=== PATIENT | male | born 1935 | race Caucasian/White ===

== ENCOUNTER 2018-02-14 08:46 | Inpatient (IN) | payer MEDICARE ==
[2018-02-14 09:44] LABS: #Eosinphils 0.2 thou/uL (0.0-0.7); #Lymphocytes 1.2 thou/uL (1.20-3.40); #Monocytes 0.5 thou/uL (0.11-0.59); #Neutrophils 3.9 thou/uL (1.40-6.50); %Basophils 0.4 % (0.0-1.0); %Eosinophils 2.9 % (0.0-10.0); %Lymphocytes 20.8 % (21.0-51.0); %Monocytes 8.9 % (0.0-10.0); %Neutrophils 66.9 % (42.0-75.0); Hemoglobin 14.5 g/dL (14.0-18.0); Mean Corpuscular HGB CONC 33.6 g/dL (32.0-36.0); Mean Corpuscular Hemoglobin 31.1 pg (27.0-31.0); Mean Corpuscular Volume 92.6 fL (78.0-98.0); Mean Platelet Volume 7.3 fL (7.4-10.4); Platelet Count 122 thou/uL (130-400); RBC Distribution Width 11.4 % (11.5-14.5); Red Blood Cell (RBC) Count 4.66 mill/uL (4.70-6.10); White Blood Cell (WBC) Count 5.8 thou/uL (4.8-10.8)
[2018-02-14 09:58] LABS: ALT (SGPT) 18 U/L (8-55); AST (SGOT) 14 U/L (5-34); Albumin 3.9 g/dL (3.4-4.8); Alkaline Phosphatase 60 U/L (40-150); Anion Gap 10 mmol/L (10-20); BUN (Urea Nitrogen) 14 mg/dL (8.4-25.7); Bilirubin, Total 1.2 mg/dL (0.2-1.2); CK (CPK) 65 U/L (30-200); Calc. Creatinine Clearance 0 mL/min (70-130); Calcium 9.7 mg/dL (7.8-10.44); Carbon Dioxide 26 mmol/L (23-31); Chloride 108 mmol/L (98-107); Estimated GFR-MDRD 58; Globulin 2.6 g/dL (2.4-3.5); Glucose 120 mg/dL (83-110); Potassium 4.4 mmol/L (3.5-5.1); Protein, Total 6.5 g/dL (5.8-8.1); Sodium 140 mmol/L (136-145)
[2018-02-14 10:02] LABS: CKMB 1.6 ng/mL (0-6.6); Troponin I Less than 0.010 ng/mL (< 0.028)
[2018-02-14] MEDS ORDERED: cefTRIAXone\\ROCEPHIN 2 GM VIAL ONE (10:47)
--- NOTE | 2018-02-14 10:49 | ULT ---
ULTRASOUND WITH DOPPLER DUPLEX VENOUS LOWER EXTREMITY RIGHT CPT: 66858 ICD-10-PCS: B54D HISTORY: Pain and edema of right lower extremity. TECHNIQUE: Color flow Doppler, spectral waveform analysis of pulsed Doppler, and rene-scale imaging with cleo ritchie and augmentation, were used to evaluate the bilateral common femoral, femoral, popliteal, client services coordinator ior tibial, and superficial femoral, veins; and the proximal portions of the profunda femoral and gre ater saphenous, veins. FINDINGS: Appropriate compressibility and flow within the imaged deep vein system of the right lower extremity. IMPRESSION: No deep vein thrombosis. POS: JOSIANE
--- NOTE | 2018-02-14 10:50 | RAD ---
THREE VIEWS RIGHT FOOT: HISTORY: Pain. COMPARISON: None. FINDINGS: Lisfranc alignment is maintained. Joint spaces are preserved. Mild hallux valgus deformity. No fra cture. No cortical irregularity or periosteal reaction. IMPRESSION: No fracture. POS: JOSIANE
--- NOTE | 2018-02-14 10:51 | RAD ---
CHEST 1 VIEW: HISTORY: Abnormal EKG. COMPARISON: None. FINDINGS: There is a linear opacity in the left mid lung which may represent scar or atelectasis. Additional l inear opacities are presumed to be chronic. No consolidation or mass. No pleural effusion or pneumo thorax. Normal cardiac silhouette. IMPRESSION: Presumed chronic changes. POS: JOSIANE
[2018-02-14 11:49] LABS: Magnesium 2.3 mg/dL (1.6-2.6); Phosphorus 2.8 mg/dL (2.3-4.7)
[2018-02-14] MEDS ORDERED: hydrALAZINE 20 MG/ML VIAL SLOW IVP PRN (13:15)
[2018-02-14] MEDS ORDERED: Bisacodyl 10 MG SUPP PR PRN (13:29)
[2018-02-14] MEDS ORDERED: Acetaminophen 325 MG TAB PO PRN (13:29)
[2018-02-14] MEDS ORDERED: Ondansetron HCl/PF 4 MG/2 ML Vial IVP PRN (13:29)
[2018-02-14] MEDS ORDERED: Senokot 8.6 MG TAB PO PRN (13:29)
[2018-02-14] MEDS ORDERED: Nitroglycerin 0.4 MG TAB (25 Tab Bottle) PO PRN (13:29)
[2018-02-14] MEDS ORDERED: Ondansetron ODT 4 MG TAB PO PRN (13:29)
[2018-02-14] MEDS ORDERED: Losartan 25 MG TAB PO SCH (13:30)
--- NOTE | 2018-02-14 13:55 | HP ---
DATE OF ADMISSION: 02/14/2018 PRIMARY CARE PHYSICIAN: Hans Ryees D.O. CHIEF COMPLAINT: Right foot pain. HISTORY OF PRESENT ILLNESS: Patient is an 83-year-old white male with hypertension, who presented to the emergency room with right ankle swelling. He was sent from [facility]. Approxim quentin 9 days ago, patient had a trauma to the right ankle. Over the last 3 days, he noticed his right foot was more swollen than usual. He also had difficulty walking. The pain was worse today, for whi ch he went to the [facility]. At the [facility], an x-ray of the foot was done that was negative . He was sent to the emergency room to rule out DVT. In the emergency room, he was found to have high-degree AV block. His pulse rate is in the 30s to 40 s. He does not take beta blockers or calcium channel promise. PAST MEDICAL HISTORY: 1. Hypertension 2. Hyperlipidemia. 3. Benign prostatic hypertrophy, followed by Dr. Galloway. 4. Restless legs syndrome. 5. History of basal cell carcinoma, followed by Dr. Pickard. PAST SURGICAL HISTORY: 1. Umbilical hernia surgery in 1994. 2. Basal cell cancer removal. ALLERGIES: No known drug allergies. CURRENT HOME MEDICATIONS: Aspirin 81 mg daily, gabapentin 100 mg at bedtime, losartan 50 mg daily, s imvastatin 20 mg daily. SOCIAL HISTORY: Patient currently lives at home with his . Today is his 55th wedding anniversar y. He is FULL CODE, makes his own decisions with the help of his family. FAMILY HISTORY: Brother with lung cancer. He also had prostate cancer. REVIEW OF SYSTEMS: The following complete review of systems was negative, unless otherwise mentioned in the HPI or below: Constitutional: Weight loss or gain, ability to conduct usual activities. Sk in: Rash, itching. Eyes: Double vision, pain. ENT/Mouth: Nose bleeding, neck stiffness, pain, te nderness. Cardiovascular: Palpitations, dyspnea on exertion, orthopnea. Respiratory: Shortness of breath, wheezing, cough, hemoptysis, fever, or night sweats. Gastrointestinal: Poor appetite, abdo nelson pain, heartburn, nausea, vomiting, constipation, or diarrhea. Genitourinary: Urgency, frequen cy, dysuria, nocturia. Musculoskeletal: Pain, swelling. Neurologic/Psychiatric: Anxiety, depressi on. Allergy/Immunologic: Skin rash, bleeding tendency. PHYSICAL EXAMINATION: VITAL SIGNS: In the emergency room showed temperature 97.4, respirations 16, pulse rate of 42, blood pressure of 200/86 with O2 saturation 96% on room air. GENERAL: An 83-year-old male in no apparent distress. HEENT: Head, atraumatic, normocephalic. Sclerae are anicteric. Moist mucous membrane, no oral lesi on. NECK: Supple, no JVD appreciated. No carotid bruit. LUNGS: Clear to auscultation bilaterally. No wheezing, rales, or rhonchi. HEART: S1, S2 present, bradycardic. No significant rubs, gallops, or murmurs appreciated. ABDOMEN: Soft, nontender, bowel sounds present. EXTREMITIES: No edema or calf tenderness in the left lower extremity. There is some erythema along with swelling over the right ankle. There is also some warmth. PERIPHERAL VASCULAR: Radial pulses and dorsalis pedis pulses were palpable. SKIN: As discussed above. LYMPH NODES: No palpable lymph nodes in the neck or groin. NEUROLOGIC: Grossly nonfocal. Moves all 4 extremities. Power was 5/5 in all extremities. PSYCHIATRIC: Alert, awake, oriented x3. LABORATORY AND X-RAY FINDINGS: TSH was normal last year. Electrolytes were all normal. Sodium was 140, potassium 4.4, BUN 14, creatinine 1.19. LFTs in normal range. CBC showed WBC 5.8 with hemoglob in 14.5 with platelets of 122. EKG, by my review, showed probable third-degree AV block. Chest x-ra y, by my review, was negative for infiltrate. IMPRESSION AND PLAN: 1. Suspected third-degree atrioventricular block. The patient will be monitored in the Intensive Ca re Unit setting. Cardiology will be consulted. Echocardiogram will be done. His thyroid studies we re normal last year. All the electrolytes were in normal range. 2. Uncontrolled hypertension. We will resume losartan. We will also add hydralazine as needed. We will continue vital signs per protocol. 3. Right ankle swelling with erythema and pain. Patient had a trauma 9 days ago. His x-rays and Do ppler were negative. He probably has right foot cellulitis. We will start empiric antibiotics. Leg elevation was emphasized. 4. Benign prostatic hypertrophy. Patient denies any obstructive symptoms. He is not on any medicat ions. 5. Chronic kidney disease, stage 3. We will avoid nephrotoxic agents. 6. Thrombocytopenia, mild. We will monitor. 7. Hyperlipidemia. We will continue simvastatin. 8. Restless legs syndrome. We will continue gabapentin at bedtime. Plan of care was discussed with the patient and the family in detail. They stated understanding.
[2018-02-14 14:39] LABS: Troponin I 0.015 ng/mL (< 0.028)
[2018-02-14 17:02] VITALS: BMI 28.5
[2018-02-14] MEDS: Enalaprilat Dihydrate 1.25 MG/ML VIAL SLOW IVP SCH ×2 (17:32→23:00)
[2018-02-14] MEDS ORDERED: niCARdipine HCl 25 MG in Sodium Chloride 0.9% 250 ML 240 ML IVPB SCH (18:30)
--- NOTE | 2018-02-14 18:33 | CON ---
DATE OF CONSULT: 02/14/18 HISTORY OF PRESENT ILLNESS: The patient is an 83-year-old gentleman who presented after hitting his foot and was noted to have a slow heart rate. The patient has no previous cardiac history. The hiram ent said he bumped his foot and went to the emergency room for evaluation. The patient was noted to have a very slow heart rate. The patient denies having any lightheadedness or history of syncope. T he patient denies having significant fatigue. The patient also states that he has had no chest disco mfort or palpitations. PAST MEDICAL HISTORY: Significant for, 1. Hypertension. 2. Dyslipidemia 3. BPH. 4. He has had skin cancer removal. 5. Umbilical hernia surgery. MEDICATIONS ON ADMISSION: Aspirin 81 daily, gabapentin 100 at bedtime, losartan 50 daily, simvastati n 20 daily. ALLERGIES: No known drug allergies. SOCIAL HISTORY: Nonsmoker. FAMILY HISTORY: No strong family history of heart disease. REVIEW OF SYSTEMS: Ten-point system otherwise unremarkable. PHYSICAL EXAMINATION: GENERAL: This is a well-developed gentleman in no acute distress, alert and oriented x3. VITAL SIGNS: Blood pressure was 195/78. NECK: No jugular venous distention. LUNGS: Clear to auscultation. HEART: Regular rate and rhythm, normal S1, S2. ABDOMEN: Nondistended. EXTREMITIES: No edema. SKIN: Warm and dry. NEUROLOGIC: Nonfocal. VASCULAR: Radial pulses 2+. LABORATORY DATA: Sodium 140, potassium 4.4, chloride 108, bicarbonate 26, BUN 40, creatinine is 1.19 , glucose 120, troponin less than 0.01. White blood cell 5.8, hemoglobin 14.5, hematocrit 43.1. His platelets are 122. His EKG revealed intermittent third degree AV block with an otherwise normal ECG . IMPRESSION: 1. Third degree AV block 2. Hypertension, poorly controlled. This gentleman presents with asymptomatic third degree AV block. He is ------ from a cardiac standpo int, his blood pressure is markedly elevated. We will start the patient on Vasotec. We will follow this patient with you through his hospitalization. Critical care note - critical care time 40 minutes.
[2018-02-14] MEDS: Docusate 100 MG CAP PO SCH (20:00)
[2018-02-14] MEDS: Simvastatin 20 MG TAB PO SCH (20:00)
[2018-02-14] MEDS: Famotidine 20 MG TAB PO SCH (20:00)
[2018-02-14] MEDS: Gabapentin 100 MG CAP PO SCH (20:00)
[2018-02-14] MEDS: cefTRIAXone\\ROCEPHIN 1 GM in Sodium Chloride 0.9% 100 ML IVPB SCH (22:21)
[2018-02-15 04:20] LABS: #Eosinphils 0.1 thou/uL (0.0-0.7); #Lymphocytes 1.4 thou/uL (1.20-3.40); #Monocytes 0.8 thou/uL (0.11-0.59); #Neutrophils 5.5 thou/uL (1.40-6.50); %Basophils 0.2 % (0.0-1.0); %Eosinophils 1.8 % (0.0-10.0); %Monocytes 9.6 % (0.0-10.0); %Neutrophils 70.5 % (42.0-75.0); Hemoglobin 15.2 g/dL (14.0-18.0); Mean Corpuscular HGB CONC 33.9 g/dL (32.0-36.0); Mean Corpuscular Hemoglobin 30.9 pg (27.0-31.0); Mean Corpuscular Volume 91.1 fL (78.0-98.0); Mean Platelet Volume 7.4 fL (7.4-10.4); Platelet Count 140 thou/uL (130-400); RBC Distribution Width 11.5 % (11.5-14.5); Red Blood Cell (RBC) Count 4.92 mill/uL (4.70-6.10); White Blood Cell (WBC) Count 7.8 thou/uL (4.8-10.8)
[2018-02-15 04:31] LABS: Anion Gap 11 mmol/L (10-20); BUN (Urea Nitrogen) 16 mg/dL (8.4-25.7); Calc. Creatinine Clearance 60 mL/min (70-130); Calcium 9.7 mg/dL (7.8-10.44); Carbon Dioxide 25 mmol/L (23-31); Chloride 108 mmol/L (98-107); Estimated GFR-MDRD 67; Glucose 112 mg/dL (83-110); Sodium 140 mmol/L (136-145)
[2018-02-15] MEDS: Enalaprilat Dihydrate 1.25 MG/ML VIAL SLOW IVP SCH ×3 (06:09→17:56)
[2018-02-15] MEDS: Famotidine 20 MG TAB PO SCH ×2 (09:28→21:13)
[2018-02-15] MEDS: Docusate 100 MG CAP PO SCH ×2 (09:29→21:14)
[2018-02-15] MEDS: Doxycycline 100 MG CAP PO SCH ×2 (09:30→21:13)
[2018-02-15] MEDS: Enoxaparin Sodium 40 MG/0.4 ML SYRINGE SC SCH (09:30)
[2018-02-15] MEDS: Losartan 25 MG TAB PO SCH (09:33)
[2018-02-15] MEDS ORDERED: traMADol HCl 50 MG TAB PO PRN (10:21)
[2018-02-15] MEDS ORDERED: Losartan 25 MG TAB PO SCH (12:00)
[2018-02-15] MEDS: Acetaminophen 325 MG TAB PO SCH ×2 (17:17→21:13)
[2018-02-15] MEDS: Simvastatin 20 MG TAB PO SCH (21:14)
[2018-02-15] MEDS: Gabapentin 100 MG CAP PO SCH (21:14)
[2018-02-15] MEDS ORDERED: Atropine Sulfate 1 mg/10 ml Syringe ONE (22:09)
--- NOTE | 2018-02-15 22:22 | PDOC.PN ---
- Subjective Encounter Start Date: 02/15/18 Encounter Start Time: 14:00 Patient seen and examined for AV block/Cellulitis. No CP/syncope/palpitations. No other complaints. No overnight events - Objective Resuscitation Status: Resuscitation Status FULL:Full Resuscitation MAR Reviewed: Yes Vital Signs & Weight: Vital Signs (12 hours) Temp Pulse Resp BP Pulse Ox 02/15/18 20:00 97.8 F 45 L 16 94 L 02/15/18 17:56 146/72 H 02/15/18 15:00 98.5 F 02/15/18 11:41 174/77 H 02/15/18 11:00 97.7 F Weight Admit Weight 182 lb 1.629 oz Weight 182 lb 12.211 oz Most Recent Monitor Data Heart Rate from ECG 43 NIBP 158/60 NIBP BP-Mean 90 Respiration from ECG 19 SpO2 95 I&O: 02/14/18 02/15/18 02/16/18 06:59 06:59 06:59 Intake Total 460 1850 Output Total 875 450 Balance -415 1400 Result Diagrams: 02/15/18 03:25 02/15/18 03:25 EKG Reviewed by me: Yes (Tele - 3rd deg AV block) Phys Exam - Physical Examination Constitutional: NAD Neck: no JVD Respiratory: no wheezing, no rales, no rhonchi, clear to auscultation bilateral Cardiovascular: no significant murmur, no rub S1S2 +, bradycardic, no heaves Gastrointestinal: soft, non-tender, positive bowel sounds Musculoskeletal: no edema Erythema over the Rt foot - slightly better Neurological: non-focal, normal sensation, moves all 4 limbs Psychiatric: normal affect, A&O x 3 Dx/Plan - Plan plan discussed w/ family, DVT proph w/SCDs IMPRESSION: 1. Third-degree atrioventricular block. 2. Hypertension. on Losartan 3. Right foot cellulitis 4. Benign prostatic hypertrophy. 5. Chronic kidney disease, stage 3. 6. Thrombocytopenia. improving 7. Hyperlipidemia. on Simvastatin 8. Restless legs syndrome. PLAN: * Cont CCU monitoring * Pacemaker in AM * Cont Atbx * Cont to monitor * Cont current meds as below. Review of Systems - Review of Systems Respiratory: negative: Cough, Dry, Shortness of Breath, Hemoptysis, SOB with Excertion, Pleuritic Pain, Sputum, Wheezing Cardiovascular: negative: chest pain, palpitations, orthopnea, paroxysmal nocturnal dyspnea, edema, light headedness, other - Medications/Allergies Allergies/Adverse Reactions: Allergies Allergy/AdvReac Type Severity Reaction Status Date / Time No Known Food Allergies Allergy Verified 02/14/18 12:34 Medications: Current Medications Acetaminophen (Tylenol) 650 mg PO Q4H PRN PRN Reason: Headache/Fever or Pain Last Admin: 02/15/18 10:25 Dose: 650 mg Acetaminophen (Tylenol) 650 mg PO TID [facility] Last Admin: 02/15/18 21:13 Dose: 650 mg Aspirin (Aspirin Chewable) 81 mg PO DAILY [facility] Last Admin: 02/15/18 09:28 Dose: 81 mg Bisacodyl (Dulcolax) 10 mg LA Q24H PRN PRN Reason: Constipation Docusate Sodium (Colace) 100 mg PO BID [facility] Last Admin: 02/15/18 21:14 Dose: 100 mg Doxycycline Hyclate (Vibramycin) 100 mg PO BID [facility] Last Admin: 02/15/18 21:13 Dose: 100 mg Enalaprilat (Vasotec) 1.25 mg SLOW IVP Q6HR [facility] Last Admin: 02/15/18 17:56 Dose: 1.25 mg Enoxaparin Sodium (Lovenox) 40 mg SC 0900 [facility] Last Admin: 02/15/18 09:30 Dose: 40 mg Famotidine (Pepcid) 20 mg PO BID [facility] Last Admin: 02/15/18 21:13 Dose: 20 mg Gabapentin (Neurontin) 100 mg PO QPM [facility] Last Admin: 02/15/18 21:14 Dose: 100 mg Hydralazine HCl (Apresoline) 10 mg SLOW IVP Q4H PRN PRN Reason: SBP Greater Than 180 Last Admin: 02/14/18 14:30 Dose: 10 mg Nicardipine HCl 25 mg/ Sodium (Chloride) 250 mls @ 0 mls/hr IVPB INF [facility]; Titrate PRN Reason: Protocol Ceftriaxone Sodium 1 gm/ (Sodium Chloride) 100 mls @ 200 mls/hr IVPB Q24HR [facility] Last Admin: 02/14/18 22:21 Dose: 100 mls Losartan Potassium (Cozaar) 50 mg PO 0900 [facility] Last Admin: 02/15/18 09:33 Dose: Not Given Nitroglycerin (Nitrostat) 0.4 mg PO Q5MIN PRN PRN Reason: Chest Pain Ondansetron HCl (Zofran Odt) 4 mg PO Q6H PRN PRN Reason: Nausea/Vomiting Ondansetron HCl (Zofran) 4 mg IVP Q6H PRN PRN Reason: Nausea/Vomiting Senna (Senokot) 2 tab PO HSPRN PRN PRN Reason: Constipation Simvastatin (Zocor) 20 mg PO QPM [facility] Last Admin: 02/15/18 21:14 Dose: 20 mg Tramadol HCl (Ultram) 50 mg PO Q6H PRN PRN Reason: Moderate Pain (4-6)
[2018-02-15] MEDS: cefTRIAXone\\ROCEPHIN 1 GM in Sodium Chloride 0.9% 100 ML IVPB SCH (22:43)
[2018-02-16] MEDS: Enalaprilat Dihydrate 1.25 MG/ML VIAL SLOW IVP SCH ×4 (01:23→18:07)
[2018-02-16] MEDS: Enoxaparin Sodium 40 MG/0.4 ML SYRINGE SC SCH (09:00)
[2018-02-16] MEDS: Doxycycline 100 MG CAP PO SCH ×2 (09:00→20:51)
[2018-02-16] MEDS ORDERED: CEFAZOLIN/Water 2 GM/20 ML SYRINGE SLOW IVP SCH ×2 (10:45→14:30)
[2018-02-16] MEDS ORDERED: Iopamidol 370 76% 50 ML VIAL FS ONE (11:05)
[2018-02-16 11:27] LABS: #Eosinphils 0.2 thou/uL (0.0-0.7); #Lymphocytes 1.2 thou/uL (1.20-3.40); #Monocytes 0.5 thou/uL (0.11-0.59); #Neutrophils 3.9 thou/uL (1.40-6.50); %Basophils 0.2 % (0.0-1.0); %Eosinophils 3.2 % (0.0-10.0); %Monocytes 7.7 % (0.0-10.0); %Neutrophils 67.9 % (42.0-75.0); Hemoglobin 15.1 g/dL (14.0-18.0); Mean Corpuscular HGB CONC 33.9 g/dL (32.0-36.0); Mean Corpuscular Hemoglobin 30.8 pg (27.0-31.0); Mean Corpuscular Volume 90.9 fL (78.0-98.0); Mean Platelet Volume 7.2 fL (7.4-10.4); Platelet Count 130 thou/uL (130-400); RBC Distribution Width 11.6 % (11.5-14.5); Red Blood Cell (RBC) Count 4.89 mill/uL (4.70-6.10); White Blood Cell (WBC) Count 5.8 thou/uL (4.8-10.8)
[2018-02-16 11:31] LABS: INR-International Normal Ratio 1.1; PTT 32.6 SEC (22.9-36.1); Prothrombin Time 14.1 SEC (12.0-14.7)
[2018-02-16 11:57] LABS: Anion Gap 12 mmol/L (10-20); BUN (Urea Nitrogen) 19 mg/dL (8.4-25.7); Calc. Creatinine Clearance 54 mL/min (70-130); Calcium 9.9 mg/dL (7.8-10.44); Carbon Dioxide 26 mmol/L (23-31); Chloride 107 mmol/L (98-107); Estimated GFR-MDRD 60; Glucose 118 mg/dL (83-110); Potassium 4.5 mmol/L (3.5-5.1); Sodium 140 mmol/L (136-145)
[2018-02-16] MEDS: Losartan 25 MG TAB PO SCH (12:31)
[2018-02-16] MEDS: Famotidine 20 MG TAB PO SCH ×2 (12:31→20:52)
[2018-02-16] MEDS: Acetaminophen 325 MG TAB PO SCH ×3 (12:32→20:52)
[2018-02-16] MEDS: Docusate 100 MG CAP PO SCH ×2 (12:32→20:52)
[2018-02-16] MEDS ORDERED: Fentanyl 100 MCG/2 ML VIAL ONE (15:15)
[2018-02-16] MEDS ORDERED: Midazolam HCl 2 mg/2 ml Vial ONE (15:16)
[2018-02-16] MEDS: Gabapentin 100 MG CAP PO SCH (20:52)
[2018-02-16] MEDS: Simvastatin 20 MG TAB PO SCH (20:52)
--- NOTE | 2018-02-16 21:18 | PDOC.PN ---
- Subjective Encounter Start Date: 02/16/18 Encounter Start Time: 17:00 Patient seen and examined for AV block with cellulitis. s/p PM placement. No new complaints. No overnight events - Objective Resuscitation Status: Resuscitation Status FULL:Full Resuscitation MAR Reviewed: Yes Vital Signs & Weight: Vital Signs (12 hours) Temp Pulse Resp BP Pulse Ox 02/16/18 20:00 98.1 F 90 20 100 02/16/18 18:07 167/72 H 02/16/18 16:27 98.0 F 02/16/18 12:00 98.0 F 110/60 Weight Admit Weight 182 lb 1.629 oz Weight 177 lb 11.081 oz Most Recent Monitor Data Heart Rate from ECG 60 NIBP 138/64 NIBP BP-Mean 79 Respiration from ECG 19 SpO2 100 I&O: 02/15/18 02/16/18 02/17/18 06:59 06:59 06:59 Intake Total 460 2000 780 Output Total 875 1250 800 Balance -415 750 -20 Result Diagrams: 02/16/18 11:13 02/16/18 11:13 EKG Reviewed by me: Yes (Tele int paced) Phys Exam - Physical Examination Constitutional: NAD Respiratory: no wheezing, no rhonchi Cardiovascular: RRR, no rub Gastrointestinal: soft, non-tender, positive bowel sounds Musculoskeletal: no edema Neurological: moves all 4 limbs Dx/Plan - Plan DVT proph w/SCDs IMPRESSION: 1. Third-degree atrioventricular block. 2. Hypertension. on Losartan 3. Right foot cellulitis 4. Benign prostatic hypertrophy. 5. Chronic kidney disease, stage 3. 6. Thrombocytopenia. improving 7. Hyperlipidemia. on Simvastatin 8. Restless legs syndrome. PLAN: * Cont IV Ceftriaxone for Cellulitis * Cont to monitor * Cont current meds as below Review of Systems - Review of Systems Respiratory: negative: Cough, Dry, Shortness of Breath, Hemoptysis, SOB with Excertion, Pleuritic Pain, Sputum, Wheezing Cardiovascular: negative: chest pain, palpitations, orthopnea, paroxysmal nocturnal dyspnea, edema, light headedness, other - Medications/Allergies Allergies/Adverse Reactions: Allergies Allergy/AdvReac Type Severity Reaction Status Date / Time No Known Food Allergies Allergy Verified 02/14/18 12:34 Medications: Current Medications Acetaminophen (Tylenol) 650 mg PO Q4H PRN PRN Reason: Headache/Fever or Pain Last Admin: 02/15/18 10:25 Dose: 650 mg Acetaminophen (Tylenol) 650 mg PO TID [facility] Last Admin: 02/16/18 20:52 Dose: 650 mg Aspirin (Aspirin Chewable) 81 mg PO DAILY [facility] Last Admin: 02/16/18 09:00 Dose: Not Given Bisacodyl (Dulcolax) 10 mg [place] Q24H PRN PRN Reason: Constipation Docusate Sodium (Colace) 100 mg PO BID [facility] Last Admin: 02/16/18 20:52 Dose: 100 mg Doxycycline Hyclate (Vibramycin) 100 mg PO BID [facility] Last Admin: 02/16/18 20:51 Dose: 100 mg Enalaprilat (Vasotec) 1.25 mg SLOW IVP Q6HR [facility] Last Admin: 02/16/18 18:07 Dose: 1.25 mg Famotidine (Pepcid) 20 mg PO BID [facility] Last Admin: 02/16/18 20:52 Dose: 20 mg Gabapentin (Neurontin) 100 mg PO QPM [facility] Last Admin: 02/16/18 20:52 Dose: 100 mg Hydralazine HCl (Apresoline) 10 mg SLOW IVP Q4H PRN PRN Reason: SBP Greater Than 180 Last Admin: 02/14/18 14:30 Dose: 10 mg Nicardipine HCl 25 mg/ Sodium (Chloride) 250 mls @ 0 mls/hr IVPB INF [facility]; Titrate PRN Reason: Protocol Ceftriaxone Sodium 1 gm/Miscellaneous Medication 1 each/ Sodium Chloride 100 mls @ 200 mls/hr IVPB 2200 [facility] Losartan Potassium (Cozaar) 50 mg PO 0900 [facility] Last Admin: 02/16/18 12:31 Dose: 50 mg Nitroglycerin (Nitrostat) 0.4 mg PO Q5MIN PRN PRN Reason: Chest Pain Ondansetron HCl (Zofran Odt) 4 mg PO Q6H PRN PRN Reason: Nausea/Vomiting Ondansetron HCl (Zofran) 4 mg IVP Q6H PRN PRN Reason: Nausea/Vomiting Senna (Senokot) 2 tab PO HSPRN PRN PRN Reason: Constipation Simvastatin (Zocor) 20 mg PO QPM [facility] Last Admin: 02/16/18 20:52 Dose: 20 mg Sodium Chloride (Flush - Normal Saline) 10 ml IVF PRN PRN PRN Reason: Saline Flush Tramadol HCl (Ultram) 50 mg PO Q6H PRN PRN Reason: Moderate Pain (4-6)
[2018-02-16] MEDS ORDERED: cefTRIAXone\\ROCEPHIN 1 GM, Admixture Fee 1 EACH in Sodium Chloride 0.9% 100 ML IVPB SCH (22:00)
[2018-02-17] MEDS: Enalaprilat Dihydrate 1.25 MG/ML VIAL SLOW IVP SCH ×2 (00:13→06:41)
[2018-02-17] MEDS ORDERED: Losartan 25 MG TAB PO SCH (06:58)
[2018-02-17 08:14] VITALS: TEMP 97.5
[2018-02-17] MEDS: Acetaminophen 325 MG TAB PO SCH (08:15)
[2018-02-17] MEDS: Doxycycline 100 MG CAP PO SCH (08:15)
[2018-02-17] MEDS: Famotidine 20 MG TAB PO SCH (08:15)
[2018-02-17] MEDS: Docusate 100 MG CAP PO SCH (08:15)
--- NOTE | 2018-02-17 08:56 | CON ---
DATE OF CONSULTATION: 02/16/2018 ELECTROPHYSIOLOGY CONSULTATION REPORT REFERRING PHYSICIAN: Jason Kwong M.D. HISTORY OF PRESENT ILLNESS: I am seeing Mr. Pablo at our [facility] telemetry floor as alliances consultant. His problems are: 1. Bradycardia with periodic high grade AV block and sinus bradycardia, rate in the 30s. 1B. LBBB block at baseline. 2. Episodic Mobitz type 1 second degree AV block and marked first degree AV block in between. 3. Structurally normal heart with LVEF 65%-70%. 4. Right foot trauma without evidence of infection. 5. Risk factors including hypertension and hyperlipidemia. ALLERGIES: None noted. MEDICATIONS AT HOME: Included aspirin, gabapentin, losartan, and simvastatin. SUBJECTIVE: Mr. Pablo is here mostly because of his right foot pain. He bumped his foot while gambling and then subsequently had severe bruising and is very much pain and had drove him to the ER. In the hospital, he is noted to have markedly slowed heart rates. Dr. Kwong was consulted and he subsequently requested me for further evaluation. He generally denies syncopal spell or near syncopal spell. He does not have major fatigue at this point yet. No fever, chills, or cough. No stroke-like symptoms, no neurological deficits. No PND, orthopnea noted. Rest of 12-point review of systems otherwise, unremarkable. PAST MEDICAL HISTORY: As above. Also has history of BPH, umbilical hernia surgery, and skin cancer removal. SOCIAL HISTORY: Patient nonsmoker, , denies smoking, ETOH or drug abuse. FAMILY HISTORY: Noncontributory. OBJECTIVE: VITAL SIGNS: Blood pressure is 148/72, heart rate 54, respiration is 18. Patient is afebrile. GENERAL: He is alert and oriented man in no apparent distress. NECK: Supple. Jugular veins not distended. CHEST: Coarse without crackles. CARDIAC: Heart sounds are regular to rate and rhythm, but bradycardic. No murmur or gallop. ABDOMEN: Benign. Bowel sounds positive. EXTREMITIES: Lower extremity edema, clubbing or cyanosis. Pulses are adequate. NEUROLOGIC: Nonfocal. MUSCULOSKELETAL: Without joint swelling or deformities. SKIN: Without rash. DATABASE: The EKG is reviewed. Initial EKG revealed sinus bradycardia with very much prolonged AV conduction, but still may be signs of conduction occurred. Mobitz type 1 second degree AV block, not a complete AV block noted. Right bundle left axis morphology is also noted. Subsequent EKGs do reveal period of Mobitz type 1 second degree AV block, sinus bradycardia and continued bradyarrhythmias on occasion reaching to 30 beats per minute. This was during awake hours as well. ASSESSMENT AND PLAN: Mr. Pablo is a pleasant 83-year-old man without much cardiac history who presenting with marked bradycardia with sinus bradycardia with Mobitz type 1 second degree AV block. He is fairly minimally symptomatic at this time, but his bradycardia is worrisome. 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 Also, additional Mobitz type 1 second degree AV block. Did discuss approximately 1% chance of rapid progression to complete AV block. Hence, he also had Mobitz type 1 second-degree block, this number actually could be higher. Although, it would not be unreasonable to proceed with the pacing in view of the heart rates below 40 beats per minute during awake hours. Pros and cons of pacing discussed including risk of infection, bleeding, pneumothorax, tamponade, device malfunction recalls. He is willing to proceed. We will schedule him for a near date. Thank you again for allowing me to participate in the care of this patient. GRZEGORZ
[2018-02-17 11:15] VITALS: BP 139/59
--- NOTE | 2018-02-17 12:45 | EKG ---
Test Reason : Blood Pressure : / mmHG Vent. Rate : 046 BPM Atrial Rate : 052 BPM P-R Int : 000 ms QRS Dur : 094 ms QT Int : 436 ms P-R-T Axes : 046 071 037 degrees QTc Int : 381 ms Normal sinus rhythm with 2:1 A-V conduction with junctional escape complexes RSR' or QR pattern in V1 suggests right ventricular conduction delay Abnormal ECG Confirmed by TIMOTHY GRANADO ([id number]) on 02/17/2018 12:45:09 PM Referred By: HENOK Confirmed By:TIMOTHY GRANADO
--- NOTE | 2018-02-17 14:54 | DIS ---
DATE OF DISCHARGE: 02/17/2018 DISCHARGE DISPOSITION: Home. FOLLOWUP: Follow up with primary care physician, Dr. Hans Reyes, in 1 week. Follow up with Dr. Jason Kwong and Electrophysiology, Dr. Lazcano in 1-2 weeks. ALLERGIES: No known drug allergies. DISCHARGE MEDICATIONS: Aspirin 81 mg daily, losartan 100 mg daily (dose increased from 50 mg daily), Zocor 20 mg daily, gabapentin 100 mg q.p.m., Keflex 500 mg three times daily for right foot cellulit is as well as pacemaker prophylaxis, Tylenol as needed. BRIEF HOSPITAL COURSE: The patient is an 83-year-old white male with hypertension and hyperlipidemia , who presented to the [facility] with right foot pain. He was sent to the hospital to rule out DV T. In the emergency room on the quality assurance monitor final, his rhythm showed third degree AV block. Please refer to the history and physical for further details. The patient was admitted to the intensive care unit with the diagnosis of third degree AV block. Pac emaker pads were placed. He was monitored closely. Losartan was resumed. Due to uncontrolled blood pressure, Losartan dose was increased. Yesterday, the patient had a pacemaker placement. He did we ll. He has been cleared by Cardiology and Electrophysiology. The patient's initial complaint was right ankle pain that has been ongoing since the trauma 9 days ag o. Due to some erythema and edema, he was started on IV ceftriaxone with good improvement. His righ t foot pain has improved. He will continue Keflex for another week. He has been cleared by Cardiolo gy and Electrophysiology for discharge. FINAL DIAGNOSES: 1. Third-degree AV block. 2. Right foot pain as the presenting complaint. 3. Right foot cellulitis. 4. Hypertension. 5. Hyperlipidemia. 6. Benign prostatic hypertrophy. 7. Chronic kidney disease stage 3. 8. Mild thrombocytopenia of 122 on admission, resolved. His platelet on the day of discharge is nor mal. 9. Hyperlipidemia. 10. Restless leg syndrome. DIAGNOSTIC TESTS: 1. Echocardiogram showed left ventricular ejection fraction 65%-70% with systolic anterior motion of the leaflet. Right atrium size was normal. 2. Right lower extremity ultrasound was negative for DVT. 3. Chest x-ray was negative for infiltrate. Right foot x-ray was negative for fractures or dislocat ion. INPATIENT CONSULTANTS: Cardiology, Dr. Jason Kwong. Electrophysiology, Dr. Plan of care was discussed with the patient and the family at the bedside, they stated understanding.
== END 2018-02-17 10:46 | disposition home or self-care (01) | DRG 243 ==
LOC: ERS 08:46 → CCU 12:21
PROVIDERS: ADMIT Internal Medicine; ATTEND Internal Medicine
PROC: 0JH606Z Insertion of Pacemaker, Dual Chamber into Chest Subcutaneous Tissue and Fascia, Open Approach (ICD-10-PCS; principal; 2018-02-16)
PROC: 02H63JZ Insertion of Pacemaker Lead into Right Atrium, Percutaneous Approach (ICD-10-PCS; 2018-02-16)
PROC: 02HK3JZ Insertion of Pacemaker Lead into Right Ventricle, Percutaneous Approach (ICD-10-PCS; 2018-02-16)
DX: I44.2 Atrioventricular block, complete (principal); L03.115 Cellulitis of right lower limb; I12.9 Hypertensive chronic kidney disease with stage 1 through stage 4 chronic kidney disease, or unspecified chronic kidney disease; N18.3 Chronic kidney disease, stage 3 (moderate); E78.5 Hyperlipidemia, unspecified; N40.0 Benign prostatic hyperplasia without lower urinary tract symptoms; G25.81 Restless legs syndrome; Z85.828 Personal history of other malignant neoplasm of skin; Z79.82 Long term (current) use of aspirin; D69.6 Thrombocytopenia, unspecified
CPT/HCPCS: 33208; 36005; 36415; 71045; 75820; 80048; 80053; 82550; 82553; 83605; 83735; 83880; 84100; 84484; 85025; 85610; 85730; 87040; 93005; 93010; 93306; 93798; 94760; 96365; 99152; 99153; C1785; C1898; J0360; J0461; J0696; J1650; J2250; J3010; J3490; J7050

== ENCOUNTER 2018-12-22 12:25 | Outpatient (CLI) | payer MEDICARE ==
--- NOTE | 2018-12-22 13:39 | ULT ---
EXAM: US Thyroid STANDARD PROVIDED CLINICAL HISTORY: Thyroid nodules/neoplasm. COMPARISON: 06/24/2012 FINDINGS: The right lobe of the thyroid gland measures 6.4 cm x 3 cm x 2.9 cm with the left lobe measuring 6.5 cm x 3 cm x 3 cm. The thyroid isthmus is thickened measuring 0.8 cm. Again noted are dominant heterogeneous nodules in each lobe of the thyroid gland. The heterogeneous n odule in the midportion right lobe of thyroid gland measures 4.2 cm x 3 cm x 2.2 cm with previous measurement of 4.5 cm 2.8 cm x 2.9 cm. The heterogeneous nodule in the medial aspect midportion right lobe of the thyroid gland adjacent to the isthmus measures 2.2 cm x 2 cm x 2.1 cm. Previous measurement was 2.6 cm x 2 cm x 2.6 cm. Two separate heterogeneous nodules were measured in the left lobe of thyroid gland on the prior exam. These nodules are difficult to discretely delineate as 2 separate nodules on this examination. Based on this examination, there appears to be a single dominant heterogeneous nodule which measures 5.3 cm x 2.8 cm x 2.5 cm. No definite new additional nodules are seen in either lobe of the thyroid gland. IMPRESSION: Dominant heterogeneous nodules in each lobe of the thyroid gland overall stable compared to the prior exam. However, as noted above, the nodules in the left lobe of thyroid gland were measured as 2 separate discrete nodules. Two separate discretely measurable nodules are difficult to delineate on t his examination, and as result, the nodule in the left lobe was measured as a single large heterogeneous nodule.
== END 2018-12-22 12:26 | disposition home or self-care (01) ==
LOC: BICULT 12:25
PROVIDERS: ATTEND Otolaryngology Plastic Surgery within the Head & Neck
DX: D49.7 Neoplasm of unspecified behavior of endocrine glands and other parts of nervous system (principal); E04.2 Nontoxic multinodular goiter
CPT/HCPCS: 76536